=== PATIENT | male | born 1990 | race African-American/Black ===

== ENCOUNTER 2016-09-22 09:10 | Emergency (ER) | payer OTHER ==
[~2016-09-22] VITALS: Ht 172.7 cm; Wt 70.8 kg
[2016-09-22 09:13] VITALS: BP 159/79
== END 2016-09-22 10:29 | disposition home or self-care (01) ==
LOC: M ED 10:23
DX: Z20.2 Contact with and (suspected) exposure to infections with a predominantly sexual mode of transmission (principal); Z91.013 Allergy to seafood